=== PATIENT | male | born 1980 | race Two or more races ===

== ENCOUNTER 2021-06-12 23:53 | Emergency (ER) | payer SELFPAY ==
[~2021-06-12] VITALS: Ht 177.8 cm; Wt 85.7 kg
[2021-06-13 02:06] LABS: Hematocrit 38.9 % (41.0-53.0); Hemoglobin 13.2 g/dL (13.5-17.5); Mean Corpuscular Hemoglobin 29.2 pg (28.0-32.0); Mean Corpuscular Volume 85.8 fL (80.0-100.0); Red Blood Cells 4.53 10^6/uL (4.5-5.90); Red Cell Distribution Width 14.3 % (11.8-14.3); White Blood Cell 10.4 10^3/uL (4.4-10.8)
[2021-06-13 02:11] LABS: Band Neutrophils % (manual) 0; Basophils % (manual) 0 (0.0-2.0); Blast Cells 0; Metamyelocytes % 0; Myelocytes % 0; Promyelocytes % 0; Reactive Lymphocytes 0
[2021-06-13 02:22] LABS: Partial Thromboplastin Time 25.1 sec (23.6-33.0)
[2021-06-13 02:23] LABS: Alanine Aminotransferase 19 U/L (16-61); Albumin 3.2 g/dL (3.4-5.0); Anion Gap 6 (5-15); Aspartate Aminotransferase 14 U/L (15-37); BUN/Creatinine Ratio 25.6; Blood Urea Nitrogen 23 mg/dL (7-18); Calcium 8.1 mg/dL (8.5-10.1); Carbon Dioxide 25 mmol/L (21-32); Chloride 108 mmol/L (98-107); GFR African American 120 mL/min; GFR Non-African American 99 mL/min; Glucose 122 mg/dL (74-106); Potassium 3.7 mmol/L (3.5-5.1); Sodium 139 mmol/L (136-145)
[2021-06-13 02:27] LABS: Alkaline Phosphatase 52 U/L (45-117); Bilirubin, Total 0.3 mg/dL (0.2-1.0); Total Protein 7.3 g/dL (6.4-8.2)
[2021-06-13 02:28] LABS: Blood Alcohol < 3.0 mg/dL (0-5)
[2021-06-13 04:46] VITALS: BP 124/70
[2021-06-13 05:27] LABS: Eosinophils % (manual) 1 (0-7); Lymphocytes % (manual) 8 (10.0-50.0); Monocytes % (manual) 1 (0-12)
== END 2021-06-13 05:57 | disposition home or self-care (01) ==
LOC: ER 23:53
DX: R40.0 Somnolence (principal); Z20.822 Contact with and (suspected) exposure to COVID-19
CPT/HCPCS: 36415; 70450; 72125; 80053; 80320; 84484; 85007; 85027; 85610; 85730; 87426; 93005